=== PATIENT | male | born 1990 | race Hispanic/Latino ===

== ENCOUNTER 2024-04-27 18:55 | Emergency (ER) | payer SELFPAY ==
[~2024-04-27] VITALS: Ht 157.5 cm; Wt 104.3 kg
[2024-04-27 18:57] VITALS: TEMP 99.5
[2024-04-27 19:18] LABS: BASOPHILS % 0.4 % (0.0-1.0); HEMATOCRIT 46.7 % (38.2-49.6); HEMOGLOBIN 15.5 g/dL (14.0-18.0); LYMPHOCYTES # (AUTO) 0.8 (1.0-3.2); LYMPHOCYTES % 9.7 % (18.0-39.1); MEAN CORPUSCULAR HEMOGLOBIN 29.8 pg (28-32); MEAN CORPUSCULAR HGB CONC 33.2 g/dL (31-35); MEAN CORPUSCULAR VOLUME 89.6 fL (81-99); MONOCYTES # (AUTO) 0.3 (0.2-0.8); MONOCYTES % 3.6 % (4.4-11.3); NEUTROPHILS # (AUTO) 6.9 (2.1-6.9); NEUTROPHILS % 85.9 % (38.7-80.0); PLATELET COUNT 314 x10e3/uL (140-360); RED BLOOD COUNT 5.21 x10e6/uL (4.3-5.7); RED CELL DISTRIBUTION WIDTH 12.9 % (11.7-14.4); WHITE BLOOD COUNT 8.02 x10e3/uL (4.8-10.8)
[2024-04-27 19:37] LABS: ALBUMIN 4.2 g/dL (3.5-5.0); ALBUMIN/GLOBULIN RATIO 1.1 (0.8-2.0); ANION GAP 15.8 mmol/L (8-16); BILIRUBIN,TOTAL 0.6 mg/dL (0.2-1.2); CALCIUM 9.7 mg/dL (8.4-10.2); CREATININE, SERUM 0.9 mg/dL (0.72-1.25); POTASSIUM 3.8 mmol/L (3.5-5.1); TOTAL PROTEIN 8.1 g/dL (6.5-8.1)
[2024-04-27 19:42] LABS: OPIATES SCREEN,URINE NEGATIVE (NEGATIVE)
[2024-04-27 19:43] LABS: AMPHETAMINES SCREEN,URINE NEGATIVE (NEGATIVE); BENZODIAZEPINES SCREEN,URINE NEGATIVE (NEGATIVE); CANNABINOIDS SCREEN,URINE NEGATIVE (NEGATIVE); METHADONE SCREEN, URINE NEGATIVE (NEGATIVE); PHENCYCLIDINE SCREEN,URINE NEGATIVE (NEGATIVE)
[2024-04-27 19:43] LABS: TROPONIN I 0.005 ng/mL (0-0.300)
[2024-04-27 20:15] VITALS: PULSE 94; RESP 17
[2024-04-27] MEDS: METOPROLOL TARTRATE INJ 1 MG/ML VIAL IV STA (20:23)
[2024-04-27 20:57] VITALS: BP 127/84; PULSE 79; RESP 17; TEMP 98.7; O2SAT 98
== END 2024-04-27 20:58 | disposition home or self-care (01) ==
LOC: ER 19:01
DX: R00.2 Palpitations (principal); Z11.52 Encounter for screening for COVID-19; R94.31 Abnormal electrocardiogram [ECG] [EKG]
CPT/HCPCS: 36415; 71045; 80053; 80307; 82550; 83690; 83880; 84484; 85025; 93005; 99284; U0002